=== PATIENT | male | born 1980 | race Caucasian/White ===

== ENCOUNTER 2016-06-11 20:32 | Emergency (ER) | payer OTHER ==
[~2016-06-11] VITALS: Ht 190.5 cm; Wt 89.0 kg
[2016-06-11 20:40] VITALS: Ht 190.5 cm; Wt 89.0 kg
[2016-06-11] MEDS ORDERED: IBUP400T22 PO (22:06)
[2016-06-11] MEDS ORDERED: CYCL-319 PO (22:06)
[2016-06-11] MEDS ORDERED: OMEP20CA16 PO (22:06)
--- NOTE | 2016-06-11 22:07 | ERD ---
ER Documentation Chief Complaint Date/Time DATE: 06/11/16 TIME: 22:01 Chief Complaint Chestwall pain that radiates down l arm HPI 35-year-old male presents to emergency department for complaints of left-sided chest wall pain radiating to the left upper back and left arm area started 9 days ago. Patient described the pain as sharp pain, 6/10 scale, radiates from the left chest area to the left upper back in the form area. Worse with touching the area. Also worse when taking a deep breath. Patient took some Flexeril ibuprofen at home with only mild relief. Patient denies any trauma on affected area. Patient denies any fever or chills. Patient denies any cough. Patient denies any dizziness. Patient denies any dyspnea on exertion or dyspnea on lying down. Patient denies any nausea or vomiting. ROS All systems reviewed and are negative except as per history of present illness. Medications Home Meds Reported Medications Ibuprofen* (Motrin*) Unknown Strength Tab, PO Q6, #30 TAB 06/11/16 Cyclobenzaprine Hcl* (Cyclobenzaprine Hcl*) Unknown Strength Tablet, PO TID, # 15 TAB 06/11/16 Omeprazole* (Omeprazole*) Unknown Strength Capsule.dr, PO DAILY, #10 06/11/16 Allergies Allergies: Coded Allergies: No Known Allergy (Unverified , 06/11/16) PMhx/Soc Medical and Surgical Hx: pt denies Medical Hx, pt denies Surgical Hx Hx Alcohol Use: No Hx Substance Use: No Hx Tobacco Use: No FmHx Family History: No coronary disease, No diabetes, No other Physical Exam Vitals Vital Signs Date Time Temp Pulse Resp B/P Pulse Ox O2 Delivery O2 Flow Rate FiO2 06/11/16 20:40 99.3 98 18 156/87 99 Physical Exam GENERAL: The patient is well developed and appropriate for usual state of health, in no apparent distress. CHEST: Clear to auscultation bilaterally. There are no rales, wheezes or rhonchi. Tenderness palpation of left chest wall and left upper back.. HEART: Regular rate and rhythm. No murmurs, clicks, rubs or gallops. No S3 or S4. ABDOMEN: Soft, nontender and nondistended. Good bowel sounds. No rebound or guarding. No gross peritonitis. No gross organomegaly or masses. No Chavarria sign or McBurney point tenderness. BACK: No midline or flank tenderness. EXTREMITIES: Equal pulses bilaterally. There is no peripheral clubbing, cyanosis or edema. No focal swelling or erythema. Full range of motion. Grossly neurovascularly intact. NEURO: Alert and oriented. Cranial nerves 2-12 intact. Motor strength in all 4 extremities with 5/5 strength. Sensation grossly intact. Normal speech and gait. SKIN: There is no apparent rash or petechia. The skin is warm and dry. HEMATOLOGIC AND LYMPHATIC: There is no evidence of excessive bruising or lymphedema. No gross cervical, axillary, or inguinal lymphadenopathy. Results 24 hrs EKG was done, read by me and is normal sinus rhythm at a rate of 90, normal axis , there is no ST changes or changes in the EKG that indicates any cardiac emergencies at this time. Patient's EKG was also reviewed by Dr. Joyce. Impression: no acute findings on EKG PROCEDURE: CHEST - 1 VIEW CLINICAL INDICATION: 35-year-old male with chest pain. TECHNIQUE: A single frontal AP semi-erect view of the chest was performed portably. The images were reviewed on a PACS workstation. COMPARISON: None. FINDINGS: The cardiomediastinal silhouette has a normal appearance. There is no evidence for an infiltrate. There is no evidence for congestive heart failure. There is no evidence for pneumothorax. The osseous structures are intact. IMPRESSION: No evidence for active cardiopulmonary disease. .Gus Vazquez MD, MD Date Time Electronically viewed and signed by .Gus Vazquez MD, MD on 06/11/2016 23:05 .M/ CC: [facility] PARSONS NP Procedures/MDM Medical Decision Making: Patient's symptoms of pain most likely consistent with musculoskeletal pain, possible muscle strain. There is low suspicion for cardiopulmonary emergencies at this time. Patient has low risk factors. EKG is normal, there is no changes in the EKG that indicates cardiac emergencies. Chest X-ray does not show cardiopulmonary emergencies at this time. There is low suspicion for aortic aneurysm, myocardial infarction, pneumothorax, pleural effusion, pulmonary embolism, or any other cardiopulmonary emergencies at this time. Patient was given prescription for [place] for severe pain, was advised to continue taking ibuprofen and Flexeril, is advised to follow-up with primary care doctor in 2-3 days for reevaluation of symptoms. Patient is advised to return to emergency department for worsening symptoms. Departure Diagnosis: Primary Impression: Chest wall pain Condition: Stable Patient Instructions: Chest Wall Strain Additional Instructions: Patient was given prescription for [place] for severe pain, was advised to continue taking ibuprofen and Flexeril, is advised to follow-up with primary care doctor in 2-3 days for reevaluation of symptoms. Patient is advised to return to emergency department for worsening symptoms. VA PARSONS NP Jun 11, 2016 22:07
--- NOTE | 2016-06-11 23:05 | RADRPT ---
PROCEDURE: CHEST - 1 VIEW CLINICAL INDICATION: 35-year-old male with chest pain. TECHNIQUE: A single frontal AP semi-erect view of the chest was performed portably. The images we re reviewed on a PACS workstation. COMPARISON: None. FINDINGS: The cardiomediastinal silhouette has a normal appearance. There is no evidence for an infiltrate. There is no evidence for congestive heart failure. There is no evidence for pneumothorax. The osseou s structures are intact. IMPRESSION: No evidence for active cardiopulmonary disease. .Gus Vazquez MD, MD Date Time Electronically viewed and signed by .Gus Vazquez MD, on 06/11/2016 23:05 .[place]/
[2016-06-11] MEDS ORDERED: HYDR-906 PO (23:34)
[2016-06-12 00:18] VITALS: BP 148/85; RESP 18; TEMP 98.9
== END 2016-06-12 00:18 | disposition home or self-care (01) ==
LOC: FTE 20:32
DX: R07.89 Other chest pain (principal)
CPT/HCPCS: 71010; 93005; Z7502

== ENCOUNTER 2018-01-06 23:34 | Emergency (ER) | END 2018-01-07 02:55 | disposition home or self-care (01) ==